=== PATIENT | male | born 1990 | race Caucasian/White ===

== ENCOUNTER 2024-07-13 09:56 | Emergency (ER) | payer MEDICAID ==
[~2024-07-13] VITALS: Ht 185.4 cm; Wt 98.0 kg
[2024-07-13 10:01] VITALS: O2SAT 98
[2024-07-13 11:28] LABS: BASOPHILS % 0.6 % (0.0-2.0); EOSINOPHILS % 2.1 % (0.0-5.0); HEMOGLOBIN. 15.4 g/dL (14.0-18.0); LYMPHOCYTES % 27.1 % (20.0-50.0); MEAN CORPUSCULAR HEMOGLOBIN 31.2 pg (28.0-32.0); MEAN CORPUSCULAR HGB CONC 34.2 g/dL (31.0-37.0); MEAN CORPUSCULAR VOLUME 91.1 fL (80.0-94.0); MEAN PLATELET VOLUME 7.7 fl (7.4-10.4); MONOCYTES % 9.9 % (2.0-8.0); NEUTROPHILS % 60.3 % (40.0-76.0); PLATELET 286 x1000/uL (130-400); RED BLOOD CELL COUNT 4.94 mill/uL (4.7-6.1); RED CELL DISTRIBUTION WIDTH 12.7 % (11.6-14.6); WHITE BLOOD COUNT 7.1 x1000/uL (4.5-11.0)
[2024-07-13 11:33] LABS: CALCIUM 9.8 mg/dL (8.7-10.4); CARBON DIOXIDE 27 mEq/L (21-32); CHLORIDE 106 mEq/L (98-107); POTASSIUM 4.1 mEq/L (3.5-5.1); SODIUM 139 mEq/L (136-145)
[2024-07-13 11:38] LABS: CREATININE 1.1 mg/dL (0.6-1.3); GLUCOSE 95 mg/dL (70-105); UREA NITROGEN BLOOD 12 mg/dL (9-23)
[2024-07-13 11:58] VITALS: BP 150/68; PULSE 74; RESP 16; TEMP 36.9; O2SAT 100
== END 2024-07-13 11:59 | disposition home or self-care (01) ==
LOC: ER 10:05
DX: B34.9 Viral infection, unspecified (principal); Z20.822 Contact with and (suspected) exposure to COVID-19
CPT/HCPCS: 36415; 71045; 80048; 85025; 87426; 87804; 99284

== ENCOUNTER 2025-01-15 09:11 | Emergency (ER) | payer MEDICAID, OTHER ==
[~2025-01-15] VITALS: Ht 185.4 cm; Wt 97.5 kg
[2025-01-15 09:14] VITALS: O2SAT 99
[2025-01-15 09:16] VITALS: TEMP 36.7; O2SAT 97
[2025-01-15 11:17] VITALS: BP 148/80; PULSE 80; RESP 17
[2025-01-15] MEDS: IBUPROFEN 800MG TABLET PO ONE (11:17)
[2025-01-15] MEDS ORDERED: METH-773 MT (12:25)
[2025-01-15] MEDS ORDERED: IBUP-1455 MT (12:25)
== END 2025-01-15 12:41 | disposition home or self-care (01) ==
LOC: ER 09:11
DX: M54.50 Low back pain, unspecified (principal); M25.552 Pain in left hip; Z98.890 Other specified postprocedural states; V19.9XXA Pedal cyclist (driver) (passenger) injured in unspecified traffic accident, initial encounter; Y93.89 Activity, other specified; Y92.89 Other specified places as the place of occurrence of the external cause; Y99.8 Other external cause status
CPT/HCPCS: 72100; 72220; 73502; 99284

== ENCOUNTER 2025-06-05 12:24 | Emergency (ER) | payer MEDICAID ==
[~2025-06-05] VITALS: Ht 188 cm; Wt 98.0 kg
[~2025-06-05 12:24] MED LIST: IBUP-1455 MT; METH-773 MT
[2025-06-05 12:44] VITALS: BP 131/86; PULSE 86; RESP 18; TEMP 36.7; O2SAT 100; O2SAT 99
== END 2025-06-05 15:48 | disposition home or self-care (01) ==
LOC: ER 13:17
DX: S83.202A Bucket-handle tear of unspecified meniscus, current injury, unspecified knee, initial encounter (principal); X58.XXXA Exposure to other specified factors, initial encounter; Y93.89 Activity, other specified; Y92.89 Other specified places as the place of occurrence of the external cause; Y99.8 Other external cause status
CPT/HCPCS: 29505; 99283